=== PATIENT | female | born 1975 ===

== ENCOUNTER 2023-12-13 13:20 | Outpatient (AMB) | payer OTHER, SELFPAY ==
[2023-12-13 13:26] VITALS: BP 144/96; PULSE 80; RESP 16; O2SAT 96; BMI 32.7
--- NOTE | 2023-12-13 13:26 | MHC.PC.OV ---
Vital Signs 12/13/23 13:26 Height 5 ft 3.5 in Weight 187 lb 8 oz BMI 32.7 BP 144/96 H Blood Pressure Location Lt brachial Position Sitting Respiration 16 Pulse 80 Pulse Source Pulse Oximeter Pulse Oximetry (%) 96 Oxygen Delivery Method Room Air Intake Visit Reasons: New patient-req physical Intake Note: Patient is a new patient here to establish care for ongoing wrist numbness. Transferring care from [facility]. Medical records have been requested and received. Psychiatry Resident Required: No Accompanied by: Self / Same As Patient Is last menstrual period known: Yes Last menstrual period: 11/29/23 Allergies No Known Allergies Allergy (Verified 12/13/23 13:36) Medication List - Last Reconciled 12/13/23 by Efrem Morris PA-C No Known Home Meds Tobacco use date assessed: 12/13/23 Dental Screening Dental Screen Date: 12/13/23 Did you have a dental visit in the last 12 months?: Yes Did you have a dental problem in the last 6 months where you did not have access to dental care?: No Was dental information given to patient?: Patient has dentist HPI New patient-req physical HPI Details Patient is a 48-year-old female here today for new patient annual physical. Previous PCP was [facility]. Pmhx syed hypothyroid, HTN, HLD, DANNIELLE ( on CPAP) Concern- has been having left wrist and hand numbness over the last few months. .. Hypothyroidism: Was followed by groundskeeper at [facility] in the past though has lost follow-up. Was on levothyroxine 137 mcg. Has been out of this medication for many years now and reports feeling fatigued and has gained weight. .. Hypertension: Patient's blood pressure elevated today in office. Will restart her lisinopril hydrochlorothiazide for better blood pressure control. 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 Vaccines:UTD with COVID , will await records [facility] Medical History Vitamin D insufficiency Urinary, incontinence, stress female Restless leg syndrome Obstructive sleep apnea Obesity, Class I, BMI 30-34.9 Menometrorrhagia Iron deficiency anemia Hypertension Hypercholesterolemia Graves disease Dysmenorrhea Surgical History H/O tubal ligation Family History Mother CAD (coronary artery disease) Breast cancer Father Alcoholism Sister Migraine Social History Housing: House Alcohol intake: current Alcohol intake frequency: holidays/special occasions only Patient Tobacco Use Status: Never used Tobacco e-Cigarette/Vaping Use: Never Used service: No Current occupational status: employed 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 1. Little interest or pleasure in doing things: not at all 2. Feeling down, depressed, or hopeless: not at all 3. Trouble falling or staying asleep, or sleeping too much: not at all 4. Feeling tired or having little energy: not at all 5. Poor appetite or overeating: not at all 6. Feeling bad about yourself - or that you are a failure or have let yourself or your family down: not at all 7. Trouble concentrating on things, such as reading the newspaper or watching television: not at all 8. Moving or speaking so slowly that other people could have noticed. Or the opposite - being so fidgety or restless that you have been moving around a lot more than usual: not at all 9. Thoughts that you would be better off or of hurting yourself in some way: not at all Total score: 0 Depression Screening Interpretation: Negative Depression Screening Done: Yes 67475 - PHQ-9 Billing: Yes Source: Developed by Drs. Kavon Vazquez, Nova Weinberg, Enrique Santos and colleagues, with an educational karlos from [employer]. Thrive Questionnaire Date Thrive assessed: 12/13/23 I am a: Patient What is your living situation today?: I have a steady place to live Within the past 12 months, did the food you bought not last and you didn't have the money to get more?: Never true Within the past 12 months, did you worry whether your food would run out before you got money to buy more?: Never true Do you have trouble paying for medicines?: No Do you have trouble getting transportation to medical appointments?: No Do you have trouble paying your heating and electricity bill?: No Do you have trouble taking care of your child, family member or friend?: No Do you have trouble with day-to-day activities such as bathing, preparing meals, shopping, managing finances, etc.?: No Are you currently unemployed and looking for a job?: No Are you interested in more education?: No Please select the resources that you would like help with: None Currently or been in a relationship where the following occur: no concerns reported THRIVE Score: 0 AUDIT C Alcohol Use Questionnaire (AUDIT-C) 1. How often do you have a drink containing alcohol?: Monthly or less 2. How many drinks containing alcohol do you have on a typical day when you are drinking?: 1 or 2 3. How often do you have six or more drinks on one occasion?: Never Total Score: 1 SEGUNDO-7 AMB Questionnaire SEGUNDO-7 Date SEGUNDO - 7 assessed: 12/13/23 Feeling nervous, anxious, or on edge: 0 = Not at all Not being able to stop or control worryin = Not at all Worrying too much about different things: 0 = Not at all Trouble relaxin = Not at all Being so restless that it is hard to sit still: 0 = Not at all Becoming easily annoyed or irritable: 0 = Not at all Feeling afraid as if something awful might happen: 0 = Not at all Total SEGUNDO-7 score (0-4 normal; 5-9 mild; 10-14 moderate; 15-21 severe): 0 Source: Developed by Drs. Kavon Vazquez, Nova Weinberg, Enrique Santos and colleagues, with an educational karlos from [employer]. SEGUNDO-7 Assessment Billing SEGUNDO-7 Assessment Tool: SEGUNDO-7 Assessment 72364 Review of Systems Const Denies body aches, Denies chills, Denies excessive sweating, Denies fatigue, Denies fever(s) and Denies headache(s) Eyes Denies blurry vision ENT Denies dysphagia, Denies vertigo, Denies dizziness, Denies headache(s), Denies hearing loss and Denies tinnitus Card Denies chest pain, Denies chest pain with activity, Denies syncope, Denies irregular heart rhythm and Denies dyspnea Resp Denies chest congestion, Denies cough, Denies hemoptysis, Denies dyspnea and Denies wheezing GI Denies abdominal pain, Denies melena, Denies hematochezia, Denies coffee ground emesis, Denies dysphagia, Denies diarrhea, Denies nausea and Denies vomiting Denies urinary frequency, Denies dysuria, Denies urinary hesitancy and Denies urinary urgency Musc Denies arthralgias, Denies limited range of motion, Denies muscle cramps and Denies muscle weakness Skin/Breast Denies rash and Denies skin ulcer Neuro Denies Abnormal speech present, Denies confusion, Denies vertigo, Denies dizziness, Denies syncope, Denies headache(s), Denies memory loss and Denies seizure-like activity Psych Denies anxiety, Denies confusion, Denies depression, Denies memory loss, Denies panic attacks and Denies paranoia Endo Denies excessive sweating, Denies fatigue, Denies flushing, Denies polydipsia and Denies polyuria Aller/Immun Denies wheezing Physical exam (Primary Care) Vital Signs: Last Vital Signs Pulse 80 12/13/23 13:26 Resp 16 12/13/23 13:26 BP 144/96 H 12/13/23 13:26 Pulse Ox 96 12/13/23 13:26 Oxygen Delivery Method Room Air 12/13/23 13:26 BMI result Body Mass Index 32.7 Tobacco/Smoking Status: Tobacco use Status Tobacco use date assessed 12/13/23 12/13/23 13:35 Patient Tobacco Use Status Never used Tobacco 12/13/23 13:43 e-Cigarette/Vaping Use Never Used 12/13/23 13:43 PHQ-9: PHQ-9 Score PHQ-9: Total score 0 12/13/23 13:39 Depression Screening Interpretation: Negative Thrive Assessment: Date of Thrive Assessment Date Thrive assessed 12/13/23 12/13/23 13:35 Currently or been in a relationship where the following occur: no concerns reported Const General: cooperative, comfortable, no acute distress, alert and awake; No confusion Orientation/consciousness: oriented to person, oriented to place, patient oriented x3 and No confusion HENMT Head: Yes normocephalic Ears: external ears normal and TM's normal bilaterally Face and sinus: No sinus tenderness Mouth: Normal oral and palatal mucosa present and tongue normal Teeth and gingiva: dentition normal and gingiva normal Throat: Yes posterior oropharynx normal, Yes tonsils normal and Yes uvula midline Eyes Conjunctivae: conjunctivae normal Sclerae: sclerae normal Pupils: Equal, round and reactive pupils present EOM: EOMs intact bilaterally Direct Ophthalmoscopy: No no photophobia Neck Neck: Yes no lymphadenopathy, No tender and Yes no JVD Thyroid: Thyroid normal Carotids: no bruits Chest Chest palpation & inspection: no tenderness Resp Effort & Inspection: normal respiratory effort, no audible wheezes, not labored and no stridor Auscultation: no crackles, no rales, no rhonchi and no wheezes Cardio Jugular venous distension: no JVD Rate: regular rate, not bradycardic and not tachycardic Rhythm: regular rhythm Bruits: no carotid bruits Peripheral pulses: Peripheral pulses 2+ throughout GI Inspection: Yes normal to inspection, No abdominal wall ecchymosis and No visible herniation Palpation (GI): Soft to palpation, nontender, no guarding, not rigid and No hepatosplenomegaly present Auscultation: normoactive bowel sounds General: Yes no CVA tenderness Back/Spine/Pelvis Back: no CVA tenderness and No back tenderness Cervical Spine: cervical ROM normal Thoracic/Lumbar Spine: thoracic and lumbar spine normal to inspection, straight leg raise negative bilaterally, No thoraco-lumbar ROM limited and No lumbar spinal tenderness Skin Lesions: no lesions Rashes: no rashes Wounds: no wounds Neuro General: oriented to person, oriented to place, patient oriented x3, CN's II-XI intact bilaterally and No confusion Cranial nerves: Yes Equal, round and reactive pupils present and Yes Normal accommodation reflex present Cognition (Neuro): normal cognition Speech: No Abnormal speech present Gait exam (Neuro): Normal gait present Motor exam (neuro): 5/5 motor strength present throughout Extrem Right upper extremity: full ROM; no cyanosis Left upper extremity: full ROM; no cyanosis Right lower extremity: no edema Left lower extremity: no edema Psych Appearance: grossly normal Mental Status: mental status grossly normal Affect: normal affect Attitude: cooperative Thought process: Normal thought process present Assessment and Plan Assessment & Plan (1) Annual physical exam: Code(s): Z00.00 - Encounter for general adult medical examination without abnormal findings (2) Hypercholesterolemia: Code(s): E78.00 - Pure hypercholesterolemia, unspecified Plan: Patient's history of hyperlipidemia. Will recheck her fasting lipid panel to assure appropriate total cholesterol and LDL. Advised to wait until restarting thyroid medication before getting fasting labs done. Goal LDL to be below 160 (3) Graves disease: Code(s): E05.00 - Thyrotoxicosis with diffuse goiter without thyrotoxic crisis or storm Plan: Patient has a history hypothyroidism. Was on 137 mcg of levothyroxine previously. Has been out of medication over the past 2 years. She has been feeling very fatigued and has gained weight. Will restart 137 mcg of levothyroxine. She does understand the proper administration of the medication. (4) Hypertension: Code(s): I10 - Essential (primary) hypertension Qualifiers: Hypertension type: primary hypertension Qualified Code(s): I10 - Essential (primary) hypertension Plan: Patient's blood pressure elevated today in office. Will restart lisinopril -hydrochlorothiazide as she was on this medication previously. Advised to monitor blood pressure at home with goal blood pressure to be below 140/90 (5) Obese: Code(s): E66.9 - Obesity, unspecified Qualifiers: Body mass index: BMI 32.0-32.9 Obesity classification: adult class 1 (BMI 30 - 34.9) Obesity type: due to excess calories Serious obesity comorbidity presence: with serious comorbidity Qualified Code(s): E66.09 - Other obesity due to excess calories; Z68.32 - Body mass index [BMI] 32.0-32.9, adult Plan: Patient does understand her BMI is over 30 will work on being more physically active and adapting to better eating habits to reduce her weight. (6) Left carpal tunnel syndrome: Code(s): G56.02 - Carpal tunnel syndrome, left upper limb Plan: Reports a several month history of worsening left wrist and hand pain and numbness. Symptoms concerning for carpal tunnel syndrome. Will send for EMG. (7) Colon cancer screening: Code(s): Z12.11 - Encounter for screening for malignant neoplasm of colon Plan: Willing to do colonoscopy (8) Iron deficiency anemia: Code(s): D50.9 - Iron deficiency anemia, unspecified Qualifiers: Iron deficiency anemia type: unspecified iron deficiency Qualified Code(s): D50.9 - Iron deficiency anemia, unspecified Plan: Has a history of iron-deficiency anemia. Will check her iron studies. (9) Obstructive sleep apnea: Code(s): G47.33 - Obstructive sleep apnea (adult) (pediatric) Plan: Patient does have a history of obstructive sleep apnea. She continues on nightly CPAP with good effect. Orders: Orders Microalbumin, Random (w Creat) Today I10 - Essential (primary) hypertension Comprehensive [place]. Panel Fast Today I10 - Essential (primary) hypertension IRON PROFILE Today D50.9 - Iron deficiency anemia, unspecified TSH reflex Free T4 Today E05.00 - Thyrotoxicosis with diffuse goiter without thyrotoxic crisis or storm Lipid Panel Today E78.00 - Pure hypercholesterolemia, unspecified NE electromyogram (EMG) Today G56.02 - Carpal tunnel syndrome, left upper limb Referrals Gastroenterology Referral Z12.11 - Encounter for screening for malignant neoplasm of colon PAYMENT POSTER Referral Z12.4 - Encounter for screening for malignant neoplasm of cervix Medications: New lisinopril-hydrochlorothiazide 10-12.5 mg 1 tab PO DAILY 90 tabs 1RF 90 days I10 - Essential (primary) hypertension levothyroxine 137 mcg PO DAILY 90 tabs 1RF 90 days E05.00 - Thyrotoxicosis with diffuse goiter without thyrotoxic crisis or storm Coding Level of Care Code New Pt Prev Care 40-64y(48059) Diagnoses Annual physical exam Z00.00 Hypercholesterolemia E78.00 Graves disease E05.00 Primary hypertension I10 Hypertension type: primary hypertension Class 1 obesity due to excess calories with serious comorbidity and body mass index (BMI) of 32.0 to 32.9 in adult E66.09; Z68.32 Body mass index: BMI 32.0-32.9 Obesity classification: adult class 1 (BMI 30 - 34.9) Obesity type: due to excess calories Serious obesity comorbidity presence: with serious comorbidity Left carpal tunnel syndrome G56.02 Colon cancer screening Z12.11 Iron deficiency anemia, unspecified iron deficiency anemia type D50.9 Iron deficiency anemia type: unspecified iron deficiency Obstructive sleep apnea G47.33 Additional Codes SEGUNDO-7 Assessment Billing - SEGUNDO-7 Assessment Tool: SEGUNDO-7 Assessment [id number] ([id number])
== END 2023-12-13 13:56 | disposition home or self-care (01) ==
PROVIDERS: PCP Physician Assistant; Visit Provider Physician Assistant
DX: Z00.00 Encounter for general adult medical examination without abnormal findings (principal); E78.00 Pure hypercholesterolemia, unspecified; E05.00 Thyrotoxicosis with diffuse goiter without thyrotoxic crisis or storm; I10 Essential (primary) hypertension; E66.09 Other obesity due to excess calories; Z68.32 Body mass index [BMI] 32.0-32.9, adult; G56.02 Carpal tunnel syndrome, left upper limb; Z12.11 Encounter for screening for malignant neoplasm of colon; D50.9 Iron deficiency anemia, unspecified; G47.33 Obstructive sleep apnea (adult) (pediatric)
CPT/HCPCS: 99386

== ENCOUNTER 2023-12-24 14:33 | Outpatient (REF) | payer OTHER, SELFPAY ==
--- NOTE | 2023-12-24 14:37 | EMG_ITS ---
Chief complaint: Left hand numbness Reason for referral: Evaluate for Carpal Tunnel Syndrome Referred by: Efrem WARD Procedure done: Left upper extremity NCS/EMG Precautions and/or limitations: None The limb temperature was monitored continuously and remained between 32-36 degrees C during the performance of the NCS. Nerve Conduction Studies Anti Sensory Summary Table ?Stim Site NR Onset (ms) Norm Onset (ms) Peak (ms) Norm Peak (ms) O-P Amp (?V) Norm O-P Amp Site1 Site2 Delta-0 (ms) Dist (cm) Dano (m/s) Norm Dano (m/s) Left Median Anti Sensory (2nd Digit) Wrist ? 3.3 4.4 <3.6 25.2 >10 Wrist 2nd Digit 3.3 14.0 42 Left Radial Anti Sensory (Thumb) Forearm ? 1.5 2.2 <3.1 11.6 Forearm Thumb 1.5 0.0 Left Ulnar Anti Sensory (5th Digit) Wrist ? 0.9 3.0 <3.7 20.4 >15.0 Wrist 5th Digit 0.9 14.0 156 Motor Summary Table ?Stim Site NR Onset (ms) Norm Onset (ms) O-P Amp (mV) Norm O-P Amp iAmp (mV) Amp (1st) (%) Site1 Site2 Delta-0 (ms) Dist (cm) Dano (m/s) Norm Dano (m/s) Left Median Motor (Abd Poll Brev) Wrist ? 5.3 <3.9 10.5 >4.5 13.6 100.0 Elbow Wrist 4.3 20.0 47 >45 Elbow ? 9.6 10.6 13.3 101.0 Left Ulnar Motor (Abd Dig Minimi) Wrist ? 2.6 <3.0 8.5 >5 10.3 100.0 B Elbow Wrist 3.4 20.0 59 >45 B Elbow ? 6.0 9.1 10.9 107.1 A Elbow B Elbow 1.2 10.0 83 >45 A Elbow ? 7.2 9.1 11.0 107.1 EMG ?Side Muscle Nerve Root Ins Act Fibs Psw Amp Dur Poly Recrt Int Pat Comment Left 1stDorInt Ulnar C8-T1 Nml Nml Nml Nml Nml 0 Nml Complete Left FlexCarRad Median C6-7 Nml Nml Nml Nml Nml 0 Nml Complete Left Biceps Musculocut C5-6 Nml Nml Nml Nml Nml 0 Nml Complete Left Triceps Radial C6-7-8 Nml Nml Nml Nml Nml 0 Nml Complete Left Deltoid Axillary C5-6 Nml Nml Nml Nml Nml 0 Nml Complete FINDINGS: Left median motor nerve showed prolonged distal latency, normal amplitude and normal conduction velocity. Left median sensory nerve showed prolonged peak latency. All other nerves tested were within normal. Concentric needle EMG was performed in selected muscles of the left upper extremity. Study delete did not reveal signs of electric abnormalities as shown in the table below. IMPRESSION: 1. This is an abnormal study. 2. There is electrodiagnostic evidence for left moderate-severe median neuropathy at the wrist, consistent with carpal tunnel syndrome. 3. There is no electrodiagnostic evidence for ulnar neuropathy, brachial plexopathy, or cervical radiculopathy. Thank you for your kind referral. Ying Ohara MD, JEREMY Board Certified, [place] Board of Physical Medicine and Rehabilitation (ABPMR) Board Certified, [place] Board of Electrodiagnostic Medicine (ABEM) [place] [id number] [facility]
== END 2023-12-24 14:34 | disposition home or self-care (01) ==
LOC: HO.NEURO 14:33
PROVIDERS: PCP Physician Assistant; Visit Provider Physician Assistant
DX: G56.02 Carpal tunnel syndrome, left upper limb (principal)
CPT/HCPCS: 95886; 95909

== ENCOUNTER → 2023-12-24 14:37 | Outpatient (BNV) | payer OTHER, SELFPAY | PROVIDERS: PCP Physician Assistant; Visit Provider Physical Medicine & Rehabilitation | DX: G56.02 Carpal tunnel syndrome, left upper limb (principal); G56.12 Other lesions of median nerve, left upper limb | CPT/HCPCS: 95886; 95909 ==

== ENCOUNTER 2024-01-12 09:53 | Outpatient (REF) | payer OTHER, SELFPAY ==
[2024-01-18 06:49] LABS: HPV mRNA E6/E7 rflx Not Detected (Not Detected)
== END 2024-01-12 09:54 | disposition home or self-care (01) ==
LOC: HO.LNP 09:53
PROVIDERS: PCP Physician Assistant; Visit Provider Advanced Practice Midwife
DX: Z01.419 Encounter for gynecological examination (general) (routine) without abnormal findings (principal)
CPT/HCPCS: 87624; 88142; 99386

== ENCOUNTER 2024-01-12 09:53 | Outpatient (AMB) | payer OTHER, SELFPAY ==
[2024-01-12 10:09] VITALS: BP 146/82; BMI 32.6
--- NOTE | 2024-01-12 10:09 | A.OFFVIS_ITS ---
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 She thinks she is due for Pap smear she has never had an abnormal 1 she had her tubes tied after the of her son at [facility]. She walks every day at least 2 miles with her daughters. She has absolutely no worries about STDs and declines testing she recently had her mammogram she was told she had dense breasts that isall . She says her blood pressure usually goes up when she goes to office she always takes her medications though this morning she forgot her levothyroxine cause she was rushing. [facility] Medical History Vitamin D insufficiency Urinary, incontinence, stress female Restless leg syndrome Obstructive sleep apnea Obesity, Class I, BMI 30-34.9 Menometrorrhagia Iron deficiency anemia Hypertension Hypercholesterolemia Graves disease Dysmenorrhea Surgical History H/O tubal ligation Family History Mother CAD (coronary artery disease) Breast cancer Father Alcoholism Sister Migraine Social History Housing: House Alcohol intake: current Alcohol intake frequency: holidays/special occasions o nly Patient Tobacco Use Status: Never used Tobacco e-Cigarette/Vaping Use: Never Used service: No Current occupational status: employed 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 Cognitive needs: No Hearing needs: No Vision needs: No Female Reproductive History Menstrual Age of Menarche: 12 Duration of menses: 6-7 days Date of last menstrual period: 12/26/23 control method: other (tubal ligation) Total pregnancies: 5 Full term: 4 Number of Living Children: 4 Physical Exam Vital Signs: Last Vital Signs BP 146/82 H 01/12/24 10:09 BMI result Body Mass Index 32.6 Const General: healthy appearing, comfortable, no acute distress, well developed and alert Nutritional Appearance: average body habitus Orientation/consciousness: patient oriented x3 Limitations: no limitations HEENT Head: Yes normocephalic Neck Neck: Yes normal visual inspection Chest Chest palpation & inspection: normal inspection of the chest Breast/axilla inspection: normal inspection of the breasts and normal inspection of the axillae Breast/axilla palpation: normal palpation of the breasts and normal palpation of the axillae Resp Effort & Inspection: normal respiratory effort GI Inspection: Yes normal to inspection, No Abdominal wall edema and No distended Palpation (GI): Soft to palpation and nontender Other: External exam within normal limits vagina is pink and moist multiparous cervix is long close thick mobile firm very sharing any unclear consistent with recent ovulation uterus midposition mobile nontender adnexa nontender good tone with Kegel. General: Yes bladder normal to palpation External Female Exam: normal external appearance and normal appearance of the urethra Speculum Exam - Vagina: normal appearance of the vagina, normal palpation and normal vaginal discharge Speculum Exam - Cervix: normal appearance of the cervix, normal palpation and nontender Bimanual exam- vagina & uterus: normal bimanual exam, normal palpation, uterine size normal, bladder normal to palpation, consistency normal, normal palpation, uterine mobility normal, uterine shape normal, No Cervical tenderness present, non-tender and no cervical motion tenderness Bimanual Exam- Adnexa, other: normal adnexae, no masses, normal and No adnexal tenderness Neuro General: patient oriented x3 Assessment & Plan Assessment & Plan (1) Cervical cancer screening: Code(s): Z12.4 - Encounter for screening for malignant neoplasm of cervix Category: Medical (2) Well woman exam with routine gynecological exam: Code(s): Z01.419 - Encounter for gynecological examination (general) (routine) without abnormal findings Category: Medical Plan -----Discussed in this visit the following: healthy balanced diet, regular and consistent exercise, getting recommended health screens, doing the best she can for her particular health concerns, kegel exercises, pap smear screening and followup recommendations, mammography screening and SBE, normal changes in cycles in her life stage--- . She is up-to-date mammograms she said they told her she has dense breasts. She walks every day exercise at least 2 miles a day. She is working on her blood pressure and she takes her medications daily for blood pressure and hypothyroidism. She was not worried at all about any STIs and declines testing she does not get any hot flashes she is more cold than hot she says her gets hot flashes we will see her in 1 year She did have a random cramp on her right side she says it sometimes is when she knew she got it Wednesday and she got it again she was getting into position on the table. Her last menstrual periods started December 25. On exam her cervix was clear in shiny multiparous as if she might have recently ovulated discussed possibility that the pain she was having is from ovulation. Coding Level of Care Code New Pt Prev Care 40-64y(23537) Diagnoses Cervical cancer screening Z12.4 Well woman exam with routine gynecological exam Z01.419
== END 2024-01-12 11:00 | disposition home or self-care (01) ==
PROVIDERS: PCP Physician Assistant; Visit Provider Advanced Practice Midwife
DX: Z12.4 Encounter for screening for malignant neoplasm of cervix (principal); Z01.419 Encounter for gynecological examination (general) (routine) without abnormal findings
CPT/HCPCS: 99386

== ENCOUNTER 2024-02-07 11:10 | Outpatient (REF) | payer OTHER, SELFPAY ==
--- NOTE | ~2024-02-07 | XR_ITS ---
EXAMINATION: Bilateral hand series CLINICAL INFORMATION: Pain in both hands COMPARISON: None. TECHNIQUE: 3 views of each hand FINDINGS: Left hand: First carpometacarpal joint there are marginal osteophytes and mild joint space narrowing indicative of mild to moderate osteoarthritis. The remaining bones joints and soft tissues are normal. Right hand: First carpometacarpal joint there are prominent marginal osteophytes and joint space narrowing indicative of moderate osteoarthritis Small carpal cyst within the scaphoid. Remaining bones joints and soft tissues unremarkable XR/XR hand LT min 3V IMPRESSION: LEFT HAND: Mild to moderate osteoarthritis of the 1st carpometacarpal joint. RIGHT HAND: Moderate osteoarthritis of the 1st carpometacarpal joint.
--- NOTE | ~2024-02-07 | XR_ITS ---
EXAMINATION: Bilateral hand series CLINICAL INFORMATION: Pain in both hands COMPARISON: None. TECHNIQUE: 3 views of each hand FINDINGS: Left hand: First carpometacarpal joint there are marginal osteophytes and mild joint space narrowing indicative of mild to moderate osteoarthritis. The remaining bones joints and soft tissues are normal. Right hand: First carpometacarpal joint there are prominent marginal osteophytes and joint space narrowing indicative of moderate osteoarthritis Small carpal cyst within the scaphoid. Remaining bones joints and soft tissues unremarkable XR/XR hand RT min 3V IMPRESSION: LEFT HAND: Mild to moderate osteoarthritis of the 1st carpometacarpal joint. RIGHT HAND: Moderate osteoarthritis of the 1st carpometacarpal joint.
== END 2024-02-07 11:11 | disposition home or self-care (01) ==
LOC: HO.HOSX 11:10
PROVIDERS: PCP Physician Assistant; Visit Provider Physician Assistant
DX: M79.642 Pain in left hand (principal); M65.4 Radial styloid tenosynovitis [de Quervain]; R20.0 Anesthesia of skin
CPT/HCPCS: 73130; 99202

== ENCOUNTER 2024-02-07 11:10 | Outpatient (AMB) | payer OTHER, SELFPAY ==
--- NOTE | 2024-02-07 11:15 | MHC.OFFVIS ---
Vital Signs 02/07/24 11:19 Height 5 ft 3 in Weight 187 lb BMI 33.1 Handedness Right Intake Visit Reasons: new pt - left hand numbness, EMG done Intake Note: Meron is a 48 yr old right hand dominant female presents today for a new patient visit for her left hand numbness, EMG was done on 12/24/23. States she is having CTS in both hands for about couple of years off and on. She expresses that her left hand is worse than the right. States its worse at night and in the mornings. Patient has tried braces with no relief. Patient would like to discuss surgery. Allergies No Known Allergies Allergy (Verified 02/07/24 11:18) HPI HPI new pt - left hand numbness, EMG done: Details: 48-year-old right hand dominant female who presents in the office today, as a new patient, for an evaluation of left upper extremity pain. Patient was seen by her PCP on 12/13/2023 with a complaint of worsening left hand symptoms over the past few months. While in the office today the patient denies numbness or tingling. She reports carpal tunnel in the bilateral hands intermittent for a few years. She reports having pain along the first dorsal compartment. This increases at night and in the morning. 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 Her daughter, who is translating for her, reports the patient has pain in both hands, but the left is greater than the right hand. She confirms the use of a brace with no relief. [facility] Medical History Vitamin D insufficiency Urinary, incontinence, stress female Restless leg syndrome Obstructive sleep apnea Obesity, Class I, BMI 30-34.9 Menometrorrhagia Iron deficiency anemia Hypertension Hypercholesterolemia Graves disease Dysmenorrhea Surgical History H/O tubal ligation Family History Mother CAD (coronary artery disease) Breast cancer Father Alcoholism Sister Migraine Social History (Updated 02/07/24 @ 11:19 by Kosta Vance) Housing: House Alcohol intake: current Alcohol intake frequency: holidays/special occasions only Patient Tobacco Use Status: Never used Tobacco e-Cigarette/Vaping Use: Never Used service: No Current occupational status: unemployed Cognitive needs: No Hearing needs: No Vision needs: No Female Reproductive History Menstrual Age of Menarche: 12 Review of Systems Const All systems reviewed & are unremarkable except as noted in HPI and below Physical Exam Vital Signs: BMI result Body Mass Index 33.1 Const General: cooperative and no acute distress Orientation/consciousness: patient oriented x3 Resp Effort & Inspection: normal respiratory effort and able to speak in complete sentences Cardio Peripheral pulses: Peripheral pulses 2+ throughout Skin General skin exam: no rashes or lesions noted Neuro General: patient oriented x3 Extrem Other: Left hand: Normal to inspection. No ecchymosis, erythema, or edema. Able to perform full finger flexion, extension, abduction, adduction, finger cross, okay sign, and thumbs up without deficit. Able to make a closed fist. Sensation intact. Negative Diego?s. Negative left carpal tunnel. Negative left cubital tunnel. Capillary refill is brisk. Radial pulse intact. Assessment & Plan Assessment & Plan (1) De Quervain's tenosynovitis, left: Code(s): M65.4 - Radial styloid tenosynovitis [de Quervain] Category: Medical Plan Ms. Mcmahon is a 48-year-old right hand dominant female who presents in the office today, as a new patient, for an evaluation of left upper extremity pain. Patient was seen by her PCP on 12/13/2023 with a complaint of worsening left hand symptoms over the past few months. While in the office today the patient denies numbness or tingling. She reports carpal tunnel in the bilateral hands intermittent for a few years. She reports having pain along the first dorsal compartment. This increases at night and in the morning. 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 Her daughter, who is translating for her, reports the patient has pain in both hands, but the left is greater than the right hand. She confirms the use of a brace with no relief. The patient will be referred for further evaluation and treatment with Dr. Krishnan. This is indicated due to having a positive EMG study, however, she is not experiencing any numbness or tingling. Her main complaint is De Quervain?s tenosynovitis. Unfortunately, the patient left before being evaluated after the X-rays for the right hand. I have instructed the medical intern to contact the patient to let her know her x-ray results. Follow up will be with Dr. Krishnan, or sooner if needed. X-rays of the left hand which were obtained while in the office today and were reviewed by me, Felicia Castellano PA-C, revealed no acute fracture or dislocation. X-rays of the right hand which were obtained while in the office today and were reviewed by me, Felicia Castellano PA-C, revealed no acute fracture or dislocation. EMG study of the left upper extremity, obtained on 12/24/2023, revealed: 1. This is an abnormal study. 2. There is electrodiagnostic evidence for left moderate-severe median neuropathy at the wrist, consistent with carpal tunnel syndrome. 3. There is no electrodiagnostic evidence for ulnar neuropathy, brachial plexopathy, or cervical radiculopathy. Orders: Orders XR hand LT min 3V Today M79.643 - Pain in unspecified hand XR hand RT min 3V Today M79.643 - Pain in unspecified hand Patient Instructions: Scribed by Nancy Sewell, medical records analyst, for Felicia Castellano PA-C on 02/07/2024 at 12:00 pm, EST. Coding Level of Care Code New Pt Level 4 (93856) Diagnoses De Quervain's tenosynovitis, left M65.4
[2024-02-07 11:19] VITALS: BMI 33.1
== END 2024-02-07 11:45 | disposition home or self-care (01) ==
PROVIDERS: PCP Physician Assistant; Visit Provider Physician Assistant
DX: M65.4 Radial styloid tenosynovitis [de Quervain] (principal)
CPT/HCPCS: 99203

== ENCOUNTER 2024-03-07 09:55 | Outpatient (AMB) | payer OTHER, SELFPAY ==
--- NOTE | 2024-03-07 10:14 | A.OFFVIS_ITS ---
Vital Signs 03/07/24 10:17 Height 5 ft 5 in Weight 184 lb BMI 30.6 Handedness Right Intake Visit Reasons: Newprob- b/l hand numbness, EMG done Intake Note: Meron is a 48 year old right hand dominant female who presents today for b/l hand numbness. She reports she noticed intermittent numbness and tingling begin roughly about a year ago. She states she is having pain along the radial aspect of both hands. This increases at night, in the morning and throughout the day. She claims she has limited ROM and lang interpreter strength. She denies previous treatment for her symptoms. She has tried Tylenol but it provides mild relief. EMG done. Allergies No Known Allergies Allergy (Verified 03/07/24 10:23) HPI HPI Newprob- b/l hand numbness, EMG done: Details: Meron is a 48 year old right hand dominant woman who presents with complaints of left hand numbness & wrist pain. Her chief complaint is of left wrist & thumb pain. Her pain is worse with pinching or gripping, and she feels limited in her daily activities. She complains of numbness in the left thumb, index, and middle fingers. Symptoms intermittent, but daily, worse at night. She says this has been present for ~1 year now. She denies any prior treatment options, and finds limited relief from Tylenol. She is currently not working & on unemployment. [facility] Medical History Vitamin D insufficiency Urinary, incontinence, stress female Restless leg syndrome Obstructive sleep apnea Obesity, Class I, BMI 30-34.9 Menometrorrhagia Iron deficiency anemia Hypertension Hypercholesterolemia Graves disease Dysmenorrhea Surgical History H/O tubal ligation Family History Mother CAD (coronary artery disease) Breast cancer Father Alcoholism Sister Migraine Social History Housing: House Alcohol intake: current Alcohol intake frequency: holidays/special occasions only Patient Tobacco Use Status: Never used Tobacco e-Cigarette/Vaping Use: Never Used service: No Current occupational status: unemployed Cognitive needs: No Hearing needs: No Vision needs: No Female Reproductive History Menstrual Age of Menarche: 12 Review of Systems Const All systems reviewed & are unremarkable except as noted in HPI and below Physical Exam Vital Signs: BMI result Body Mass Index 30.6 Const General: cooperative, healthy appearing and no acute distress Orientation/consciousness: patient oriented x3 HEENT Head: Yes normocephalic and Yes atraumatic Eyes EOM: EOMs intact bilaterally Resp Effort & Inspection: normal respiratory effort and able to speak in complete sentences Cardio Jugular venous distension: no JVD Skin General skin exam: turgor normal Rashes: no rashes Neuro General: patient oriented x3 Extrem Other: Evaluation of Left Upper Extremity: The patient is alert, oriented, and in no acute distress Neuro: Median, Ulnar, Radial nerves motor and sensory intact and sensation is normal to the tips of all digits No thenar or intrinsic wasting Vascular: Cap refill brisk ROM: She can make a fist and extend all her digits No locking or catching Skin: No lacerations or abrasions. General: No Ecchymosis. No Erythema or evidence of infection. Tender over the basal joint + shoulder sign + CMC grind No tenderness over the 1st dorsal compartment Negative Diego test on the left Negative Diego test on the right Nerve Conduction study: Left-side only IMPRESSION: 1. This is an abnormal study. 2. There is electrodiagnostic evidence for left moderate-severe median neuropathy at the wrist, consistent with carpal tunnel syndrome. 3. There is no electrodiagnostic evidence for ulnar neuropathy, brachial plexopathy, or cervical radiculopathy. Ying Ohara MD, JEREMY 12/24/23 Radiographs: 3 views of the bilateral hands from 02/07/24 were reviewed by me today in clinic. They show bilateral basal joint osteoarthritis with joint space narrowing, subluxation, and early osteophyte formation Psych Appearance: grossly normal Affect: normal affect Attitude: cooperative Office Procedures Fracture Care Details: No fracture, injection Fracture Billing Code: Fracture Billing Code Assessment & Plan Assessment & Plan (1) Osteoarthritis of carpometacarpal joint of left thumb: Code(s): M18.12 - Unilateral primary osteoarthritis of first carpometacarpal joint, left hand Category: Medical (2) Left carpal tunnel syndrome: Code(s): G56.02 - Carpal tunnel syndrome, left upper limb Category: Medical (3) Osteoarthritis of carpometacarpal joint of right thumb: Code(s): M18.11 - Unilateral primary osteoarthritis of first carpometacarpal joint, right hand Category: Medical (4) Numbness and tingling in right hand: Code(s): R20.0 - Anesthesia of skin; R20.2 - Paresthesia of skin Category: Medical Plan Assessment & Plan: 1. Left basal joint arthritis This is her primary complaint today I educated her about this condition I discussed operative and non-operative treatment options The patient would like to proceed with an injection I discussed activity modification, they should limit or avoid any heavy or repetitive pinching or gripping activities She was fitted for a comfort cool brace to wear with daily activity Injection #1 : The risks and benefits of a steroid injection including but not limited to risk of damage to blood vessels, nerve, tendon, infection, skin bleaching, persistent or worsening pain, and failure to improve symptoms were discussed with the patient and they wish to proceed with the steroid injection. Once consent was obtained the skin over the dorsum of the Left basal joint was sterilely prepped. The joint was then injected with a combination of 1 mL of (40 mg/ml} Depo-Medrol and 1% plain Lidocaine. The patient appears to have tolerated the procedure well and with no complications. She had good early relief before leaving clinic today. She knows that they may not have another steroid injection into this joint for least 4 months. 2. Left carpal tunnel syndrome, moderate-severe Symptoms intermittent, but daily, worse at night I educated her about this condition I discussed operative and non-operative treatment options The patient would like to proceed with surgery The risks and benefits of operative treatment were discussed with the patient and the patient wishes to proceed with surgery. These risks include, but are not limited to risk of damage to blood vessels, nerves, tendons, infection, recurrence, incomplete relief of preoperative symptoms, persistent pain, possible need for further surgery and the risks associated with regional blocks and anesthesia. The plan is to take the patient to the operating room sometime in the next few weeks for the following procedures: 1. Left carpal tunnel release, under local All of the preoperative paperwork including the consent was reviewed today. All the patient's questions were answered. The patient understands that they will be contacted by our veterinary surgery technologist soon to schedule this procedure. She denies Diabetes, blood thinners, asthma, heart, lung, kidney issues 3. Right basal joint arthritis Seen on Radiographs No complaints today If she develops any new or worsening pain she can follow up to discuss treatment options. 4. Right hand numbness In the median nerve distribution Symptoms unclear Not discussed today in clinic We may discuss this at a later appointment, and consider a possible NCS to assess for peripheral nerve compression Scribed for Sinai Krishnan MD by Benjy Yao, medical assistant internal medicine, on 03/07/24 at 10:55 AM, EST. Coding Level of Care Code Est Pt Level 4 (51313) Diagnoses Osteoarthritis of carpometacarpal joint of left thumb M18.12 Left carpal tunnel syndrome G56.02 Osteoarthritis of carpometacarpal joint of right thumb M18.11 Numbness and tingling in right hand R20.0; R20.2 CPT Codes Fracture Care - Fracture Billing Code: Fracture Billing Code ([id number])
[2024-03-07 10:17] VITALS: BMI 30.6
== END 2024-03-07 11:20 | disposition home or self-care (01) ==
PROVIDERS: PCP Physician Assistant; Visit Provider Orthopaedic Surgery
DX: M18.0 Bilateral primary osteoarthritis of first carpometacarpal joints (principal); G56.02 Carpal tunnel syndrome, left upper limb
CPT/HCPCS: 20600; 99214

== ENCOUNTER → 2024-03-07 09:55 | Outpatient (BNVA) | payer OTHER, SELFPAY | PROVIDERS: PCP Physician Assistant; Visit Provider Orthopaedic Surgery | DX: M18.0 Bilateral primary osteoarthritis of first carpometacarpal joints (principal); G56.02 Carpal tunnel syndrome, left upper limb; R20.0 Anesthesia of skin; R20.2 Paresthesia of skin | CPT/HCPCS: 20600; 99212; J1010 ==

== ENCOUNTER 2024-05-11 09:36 | Day surgery (SDC) | payer OTHER, SELFPAY ==
[2024-05-11 10:03] VITALS: BMI 30.6
[2024-05-11 10:06] VITALS: BP 143/91; PULSE 85; RESP 18; TEMP 36.8; O2SAT 98
--- NOTE | 2024-05-11 10:39 | P.OP_ITS ---
Operative Note Operative Note Date of Service: 05/11/24 Narrative: Preop diagnosis: 1. Left Carpal tunnel syndrome Postop diagnosis: same Procedure: 1. Left Carpal tunnel release Surgeon: Sinai Krishnan MD Sewage Screen Operator: Meng WARD Anesthesia: local block using 1% lidocaine with epinephrine Findings: Thickened transverse carpal ligament. EBL: Less than 5 mL Specimens: None Complications: None Disposition: Brought to recovery room in stable condition Plan: Follow-up for 10-14 days for wound check and suture removal Indications: The patient is 48 years old, with left carpal tunnel syndrome that has been unresponsive to nonoperative management. The risks and benefits of operative treatment including but not limited to risk of damage to blood vessels, nerves, tendons, infection, persistent pain, persistent symptoms, or possible need for additional surgery were discussed with the patient and the patient wishes to proceed with surgery. Procedure: Once consent was obtained a local block was performed using a combination of 1% lidocaine with epinephrine. The patient was then brought back to the operating suite and placed on the operative table in supine position. The left upper extremity was prepped and draped in a standard surgical fashion. Once assured that we had a good block, a 2.0 cm longitudinal incision was made centered over the carpal tunnel. The incision was made through the skin to the subcutaneous tissues using a #15 blade. Dissection was made down to the level of the transverse carpal ligament with care being taken to protect the palmar cutaneous nerve. Once the transverse carpal ligament was clearly visualized, a longitudinal incision was made in the transverse carpal ligament 1st using a #15 blade, then using tenotomy scissors under direct visualization. Care was taken to look for and protect the motor branch of the median nerve when seen in this area. Once satisfied with our carpal tunnel release the wound was copiously irrigated with normal saline and hemostasis was obtained with a brief period of local pressure. The skin edges were reapproximated with some 5.0 nylon suture material and a sterile dressing was applied. The patient appears to have tolerated the procedure well and with no complications. All digits were well vascularized at the conclusion of the case.
--- NOTE | 2024-05-11 10:39 | MHC.SHP ---
Pre-Procedural Eval Section A - 24 Hr Update-Section A only Date of Service: 05/11/24 The patient is an INPATIENT: No Changes since office visit: No Cold of Flu in the past 2 weeks, No New Medical Problems, No Changes in Medication and No Patient answered all questions The patient has been examined within 24 hours of the surgical procedure. The History & Physical has been completed within 30 days and I have reviewed it.: Yes Section B - Complete if H&P > 30 days Chief Complaint: Carpal tunnel syndrome, left upper limb Allergies: Allergies Allergy/AdvReac Type Severity Reaction Status Date / Time No Known Allergies Allergy Verified 05/11/24 10:09 Plan Diagnosis/Plan: Unchanged I have reviewed the history and physical and performed a pertinent physical examination on my patient. No changes have occurred unless specified. Time Spent With Patient Time: Total time managing care of this patient today ____ minutes.
[2024-05-11 11:51] VITALS: BP 146/89; PULSE 86; RESP 16; O2SAT 100
== END 2024-05-11 11:53 | disposition home or self-care (01) ==
PROVIDERS: PCP Family Medicine; Visit Provider Orthopaedic Surgery
PROC: (CPT 64721; principal; 2024-05-11 10:30)
DX: G56.02 Carpal tunnel syndrome, left upper limb (principal); R20.0 Anesthesia of skin; R20.2 Paresthesia of skin; M18.12 Unilateral primary osteoarthritis of first carpometacarpal joint, left hand; I10 Essential (primary) hypertension; D50.9 Iron deficiency anemia, unspecified; E55.9 Vitamin D deficiency, unspecified; E78.00 Pure hypercholesterolemia, unspecified; G47.33 Obstructive sleep apnea (adult) (pediatric); Z56.0 Unemployment, unspecified
CPT/HCPCS: 64721; J0171

== ENCOUNTER → 2024-05-11 09:36 | Outpatient (BNV) | payer OTHER, SELFPAY | PROVIDERS: PCP Family Medicine; Visit Provider Orthopaedic Surgery | DX: G56.02 Carpal tunnel syndrome, left upper limb (principal) | CPT/HCPCS: 64721 ==

== ENCOUNTER 2024-05-24 09:45 | Outpatient (AMB) | payer OTHER, SELFPAY ==
--- NOTE | 2024-05-24 09:45 | A.OFFVIS_ITS ---
Vital Signs 05/24/24 09:46 Height 5 ft 5 in Weight 185 lb BMI 30.8 Intake Visit Reasons: PO, L CTR 05/11/24 AR Intake Note: Meron is a 48 year old right hand dominant female who presents today for a post operative appointment s/p Left Carpal Tunnel Release 05/11/24. Patient reports that she is doing well, numbness and tingling hask resolved and her pain has significantly improved. No concerns at this time. Sutures removed and steri strips applied Allergies No Known Allergies Allergy (Verified 05/24/24 09:51) HPI HPI PO, L CTR 05/11/24 AR: Details: Patient is a 48-year-old female who presents for postoperative evaluation status post left carpal tunnel release, DOS 05/11/2024. Patient reports that he is feeling very well at this time, and that her numbness and tingling have completely resolved. The patient reports she is still experiencing some mild discomfort in her left hand, but this has improved significantly since DOS. Sutures have already been removed, and the patient reports discomfort at the incision site, as well as no drainage from the incision site. No other acute complaints or concerns at this time. [facility] Medical History Vitamin D insufficiency Urinary, incontinence, stress female Restless leg syndrome Obstructive sleep apnea Obesity, Class I, BMI 30-34.9 Menometrorrhagia Iron deficiency anemia Hypertension Hypercholesterolemia Graves disease Dysmenorrhea Surgical History H/O tubal ligation Family History Mother CAD (coronary artery disease) Breast cancer Father Alcoholism Sister Migraine Social History Housing: House Are you a primary acute care certified nursing assistant to a significant other at home: No Do you presently have visiting nurse or other home services: No Alcohol intake: current Alcohol intake frequency: holidays/special occasions only Patient Tobacco Use Status: Never used Tobacco e-Cigarette/Vaping Use: Never Used service: No Current occupational status: unemployed Cognitive needs: No Hearing needs: No Vision needs: No Female Reproductive History Menstrual Age of Menarche: 12 Physical Exam Vital Signs: BMI result Body Mass Index 30.8 Extrem Other: Patient is alert, oriented, and in no acute distress. Neuro: Patient reports normal sensation in the tips of all digits of the left hand at this time. Vascular: Cap refill brisk Pain: Patient reports no tenderness to palpation about the incision site Patient does report mild discomfort on the volar aspect of the left hand with range of motion of the fingers of the left hand ROM: With encouragement, patient is able to make a closed fist Patient is able to extend all digits of the left hand without difficulty Skin: Well-healing incision site noted on the volar aspect of the left wrist No evidence of drainage or infection General: No ecchymosis, erythema, or evidence of infection. Psych: Appears grossly normal Affect normal Attitude cooperative Assessment & Plan Assessment & Plan (1) Left carpal tunnel syndrome: Code(s): G56.02 - Carpal tunnel syndrome, left upper limb Category: Medical Plan 1. Left carpal tunnel syndrome status post carpal tunnel release DOS 05/11/2024 Patient appears to be recovering well postoperatively Patient is educated about the typical recovery course Patient is informed that she does not require any acute follow-up with us, but she can call to make an appointment with any acute concerns Patient is amenable to this plan Patient will follow-up as needed with any acute concerns Coding Level of Care Code Global (65579) Diagnoses Left carpal tunnel syndrome G56.02
[2024-05-24 09:46] VITALS: BMI 30.8
== END 2024-05-24 10:15 | disposition home or self-care (01) ==
PROVIDERS: PCP Physician Assistant
DX: G56.02 Carpal tunnel syndrome, left upper limb (principal)
CPT/HCPCS: 99024

== ENCOUNTER → 2024-05-24 09:45 | Outpatient (BNVA) | payer OTHER, SELFPAY | PROVIDERS: PCP Physician Assistant | DX: Z47.89 Encounter for other orthopedic aftercare (principal); Z98.890 Other specified postprocedural states | CPT/HCPCS: 99212 ==